=== PATIENT | female | born 1955 | race Caucasian/White ===

== ENCOUNTER 2019-03-16 10:31 | Day surgery (SDC) | payer OTHER ==
[~2019-03-16] VITALS: Ht 170.2 cm; Wt 73.1 kg
[~2019-03-16 10:31] MED LIST: Calcium 600+D1 EAC2; Daily Multiple1 EACH PO; FIBER500 MG; GLUCOSAMINE CH1 EAC3; Papaya1 EACH
[2019-03-16] MEDS ORDERED: ATOR10 (11:23)
[2019-03-16] MEDS ORDERED: Aspir 8181 MG PO (11:23)
--- NOTE | 2019-03-16 11:27 | NUR ---
03/16/19 [id number] Nicholas Olivier CALL LIGHT WITHIN REACH
== END 2019-03-16 13:43 | disposition home or self-care (01) ==
LOC: ORSCSDS 10:31
PROVIDERS: Internal Medicine Gastroenterology
PROC: 0DBN8ZX Excision of Sigmoid Colon, Via Natural or Artificial Opening Endoscopic, Diagnostic (ICD-10-PCS; principal; 2019-03-16 11:45)
PROC: 0DBL8ZX Excision of Transverse Colon, Via Natural or Artificial Opening Endoscopic, Diagnostic (ICD-10-PCS; principal; 2019-03-16 11:45)
PROC: 0DBP8ZX Excision of Rectum, Via Natural or Artificial Opening Endoscopic, Diagnostic (ICD-10-PCS; principal; 2019-03-16 11:45)
DX: Z12.11 Encounter for screening for malignant neoplasm of colon (principal); D12.3 Benign neoplasm of transverse colon; K63.5 Polyp of colon; K62.1 Rectal polyp; K57.30 Diverticulosis of large intestine without perforation or abscess without bleeding; K64.4 Residual hemorrhoidal skin tags; E78.5 Hyperlipidemia, unspecified; Z79.82 Long term (current) use of aspirin; Z79.899 Other long term (current) drug therapy
CPT/HCPCS: 88305; J2405; J2704; J7120

== ENCOUNTER → 2019-06-08 | Outpatient (CLI) | payer OTHER ==
[~2019-06-08] MED LIST changes: +ATOR10; +Aspir 8181 MG PO
== END | disposition home or self-care (01) ==
LOC: PLD 10:50 → LAB SHORT 10:50
DX: L91.8 Other hypertrophic disorders of the skin (principal)
CPT/HCPCS: 88304

== ENCOUNTER → 2021-12-10 | Outpatient (CLI) | payer OTHER | END | disposition home or self-care (01) | LOC: LAB SHORT 14:55 → PLD 14:55 | DX: D36.10 Benign neoplasm of peripheral nerves and autonomic nervous system, unspecified (principal); L81.4 Other melanin hyperpigmentation | CPT/HCPCS: 88305 ==

== ENCOUNTER 2021-12-19 11:13 | Emergency (ER) | payer OTHER ==
[~2021-12-19] VITALS: Ht 167.6 cm; Wt 74.8 kg
== END 2021-12-19 15:16 | disposition home or self-care (01) ==
LOC: ER 11:13
DX: F45.8 Other somatoform disorders (principal); J02.9 Acute pharyngitis, unspecified; E78.00 Pure hypercholesterolemia, unspecified; Z79.899 Other long term (current) drug therapy; Z79.82 Long term (current) use of aspirin
CPT/HCPCS: 70360; 99283-25

== ENCOUNTER → 2022-01-28 | Outpatient (CLI) | payer OTHER ==
[2022-01-30 16:11] LABS: HPV 16 Negative (Negative); HPV 18 Negative (Negative); HPV OTHER HR TYPES Negative (Negative)
== END | disposition home or self-care (01) ==
LOC: LAB SHORT 09:40 → LAB 09:40
PROVIDERS: Internal Medicine
DX: Z01.419 Encounter for gynecological examination (general) (routine) without abnormal findings (principal)
CPT/HCPCS: 87624; 88175

== ENCOUNTER 2022-04-29 07:14 | Day surgery (SDC) | payer OTHER ==
[~2022-04-29] VITALS: Ht 170.2 cm; Wt 73.9 kg
[2022-04-29] MEDS ORDERED: Pepcid20 MG PO (07:57)
--- NOTE | 2022-04-29 09:13 | NUR ---
04/29/22 0913 Valentine Triana LIDOCAINE 1% WITH EPI 1:200,000 CREATED BY MIXING LIDOCAINE 2% WITH EPI 1:100,000 1:1 WITH NACL.
--- NOTE | 2022-04-29 10:55 | NUR ---
04/29/22 1055 Denis Garcia PT REPORTS 3/10 PAIN. STATES PAIN IS TOLERABLE AND DOES NOT WANT MEDICATION AT THIS TIME.
== END 2022-04-29 12:02 | disposition home or self-care (01) ==
LOC: ORSCSDS 07:14
PROVIDERS: Otolaryngology
PROC: 0GTH0ZZ Resection of Right Thyroid Gland Lobe, Open Approach (ICD-10-PCS; principal; 2022-04-29 08:30)
DX: C73 Malignant neoplasm of thyroid gland (principal); K21.9 Gastro-esophageal reflux disease without esophagitis; Z79.899 Other long term (current) drug therapy; Z79.82 Long term (current) use of aspirin
CPT/HCPCS: J1100; J2250; J2405; J2704; J2710; J3010; J7120

== ENCOUNTER 2022-05-13 12:22 | Day surgery (SDC) | payer OTHER ==
[~2022-05-13] VITALS: Ht 170.2 cm; Wt 73.3 kg
[~2022-05-13 12:22] MED LIST changes: +Pepcid20 MG PO
--- NOTE | 2022-05-13 14:53 | NUR ---
05/13/22 1453 Maryellen España LIDOCAINE 2% 1:100,000 MIXED 1:1 WITH NACL PER ORDER TO MAKE LIDOCAINE 1% 1:200,000 FOR INJECTION AT OPSITE BY DR KHAN.
== END 2022-05-13 16:33 | disposition home or self-care (01) ==
LOC: ORSCSDS 12:22
PROVIDERS: Otolaryngology
PROC: 0GTG0ZZ Resection of Left Thyroid Gland Lobe, Open Approach (ICD-10-PCS; principal; 2022-05-13 13:45)
DX: C32.3 Malignant neoplasm of laryngeal cartilage (principal); K21.9 Gastro-esophageal reflux disease without esophagitis; Z79.899 Other long term (current) drug therapy
CPT/HCPCS: 88307; A9270; J0171; J1100; J1885; J2370; J2405; J2704; J3010; J7120

== ENCOUNTER → 2022-08-10 | Outpatient (CLI) | payer OTHER | END | disposition home or self-care (01) | LOC: LAB SHORT 16:25 → LAB 16:25 | DX: N39.0 Urinary tract infection, site not specified (principal) | CPT/HCPCS: 87077; 87086; 87186 ==

== ENCOUNTER 2022-12-29 06:01 | Day surgery (SDC) | payer OTHER ==
[~2022-12-29] VITALS: Ht 170.2 cm; Wt 74.8 kg
[2022-12-29] VITALS (9 sets, daily range): BP systolic 105–133; BP diastolic 60–83
[~2022-12-29 06:01] MED LIST changes: +LEVSOD150 PO; +MELO7.5 PO
--- NOTE | 2022-12-29 07:26 | NUR ---
Ambulatory in [facility] warming gown applied. History, Chart, Medications and Allergies reviewed before start of procedure.Lungs clear T/O to Auscultation. Patient confirms NPO status and agrees with scheduled surgery. Pre-Op teaching done. Pt verbalizes understanding. Patient States Post-Procedure ride home has been arranged.
--- NOTE | 2022-12-29 09:48 | NUR ---
Patient up to Ambulate independently. Gait steady. Discharge instructions reviewed with patient. Patient verbalizes understanding. Copy given to patient to take home. Discharged via wheelchair to private car for ride home. SEE EMAR FOR PAIN MEDICATIONS GIVEN.
== END 2022-12-29 09:45 | disposition home or self-care (01) ==
LOC: ORSCMMR 06:01 → ORD 07:30 → ORSCMMR 09:45
PROVIDERS: Surgery
PROC: 06BY0ZC Excision of Hemorrhoidal Plexus, Open Approach (ICD-10-PCS; principal; 2022-12-29 07:30)
DX: K64.2 Third degree hemorrhoids (principal); E03.9 Hypothyroidism, unspecified; E78.5 Hyperlipidemia, unspecified; Z79.899 Other long term (current) drug therapy
CPT/HCPCS: 88304; A9270; J1100; J2001; J2370; J2405; J2704; J3010; J7120

== ENCOUNTER 2024-09-19 09:09 | Day surgery (SDC) | payer OTHER ==
[~2024-09-19] VITALS: Ht 167.6 cm; Wt 71.8 kg
[2024-09-19] MEDS ORDERED: propofoL 50 ML IV ONE (09:37)
[2024-09-19] MEDS ORDERED: Lactated Ringer's 1,000 ML IV ONE ×2 (09:37→11:22)
[2024-09-19] MEDS ORDERED: LOSA50 (11:08)
[2024-09-19] MEDS ORDERED: LEVSOD137 (11:08)
[2024-09-19] MEDS ORDERED: TIZA4 (11:09)
[2024-09-19] MEDS ORDERED: Ondansetron HCl 2 MG / ML 2ML Vial ONE ×2 (13:09→13:24)
[2024-09-19 13:51] VITALS: BP 120/77
== END 2024-09-19 13:54 | disposition home or self-care (01) ==
LOC: ORSCSDS 09:09
PROVIDERS: Internal Medicine Gastroenterology
PROC: 0DBK8ZX Excision of Ascending Colon, Via Natural or Artificial Opening Endoscopic, Diagnostic (ICD-10-PCS; principal; 2024-09-19 12:00)
PROC: 0DBL8ZX Excision of Transverse Colon, Via Natural or Artificial Opening Endoscopic, Diagnostic (ICD-10-PCS; principal; 2024-09-19 12:00)
PROC: 0DBN8ZX Excision of Sigmoid Colon, Via Natural or Artificial Opening Endoscopic, Diagnostic (ICD-10-PCS; principal; 2024-09-19 12:00)
DX: Z12.11 Encounter for screening for malignant neoplasm of colon (principal); Z86.0101 Personal history of adenomatous and serrated colon polyps; K63.5 Polyp of colon; D12.3 Benign neoplasm of transverse colon; E78.5 Hyperlipidemia, unspecified; K64.4 Residual hemorrhoidal skin tags; Z79.82 Long term (current) use of aspirin; Z79.899 Other long term (current) drug therapy
CPT/HCPCS: 88305; J2405; J2704; J7120

== ENCOUNTER → 2024-12-07 | Outpatient (CLI) | payer OTHER ==
[~2024-12-07] MED LIST changes: +LEVSOD137; +LOSA50; +TIZA4
[2024-12-07 13:21] LABS: Bacterial Vaginosis PCR Negative (NEGATIVE); Candida Group, PCR NOT DETECTED (NOT DETECT); Candida glabrata-krusei, PCR NOT DETECTED (NOT DETECT)
== END ==
LOC: LAB 09:09 → LAB SHORT 09:09
PROVIDERS: Family Medicine
DX: N89.8 Other specified noninflammatory disorders of vagina (principal)
CPT/HCPCS: 81515